=== PATIENT | male | born 1955 | race Caucasian/White ===

== ENCOUNTER 2016-12-12 17:37 | Observation (INO) ==
[2016-12-12 18:10] LABS: Basophils % 0.5 %; Eosinophils # 0.1 K/mcL (0.0-0.6); Hematocrit 46.3 % (37.5-50.1); Hemoglobin 16.1 g/dL (12.9-16.9); Immature Granulocytes % 0.3 % (0-4); Lymphocytes # 1.8 K/mcL (0.6-4.6); Lymphocytes % 22.8 %; Mean Corpuscular HGB Conc 34.8 g/dL (31.6-35.5); Mean Corpuscular Hemoglobin 33.2 pg (28.0-33.3); Mean Corpuscular Volume 95.5 fL (83.0-100.0); Mean Platelet Volume 10.5 fL (9.4-12.4); Monocytes # 0.9 K/mcL (0.0-1.3); Monocytes % 11.7 %; Neutrophils # 4.9 K/mcL (1.6-8.9); Platelet Count 216 K/mcL (140-400); Red Blood Count 4.85 M/mcL (4.19-5.50); Red Cell Distribution Width 13.5 % (11.5-14.5); Segmented Neutrophils % 63.7 %
[2016-12-12 18:22] LABS: BUN/Creatinine Ratio 7 (6-26); Blood Urea Nitrogen 6 mg/dL (8-26); Carbon Dioxide 23 mEq/L (19-29); Chloride 105 mEq/L (98-109); Glucose 110 mg/dL (70-99); INR 1.1; Osmolality,Calculated 284 (280-300); Potassium 3.6 mEq/L (3.5-4.5); Prothrombin Time 11.4 Seconds (9.4-12.1); Sodium 138 mEq/L (136-145); eGFR For African Americans > 60 (> 60); eGFR For Non-African Americans > 60 (> 60)
[2016-12-12 18:24] LABS: Activated Partial Thrombo Time 29.6 Seconds (26.0-36.0)
--- NOTE | 2016-12-12 19:22 | Emergency Department Note ---
Disposition Clinical Impression: Chest pain, Hypertension, Obesity, Smoker, COPD (chronic obstructive pulmonary disease), Hyperlipidemia, Family history of coronary artery disease Disposition: Admitted As Inpatient Referrals: Pino Goldstein DO [Primary Care Provider] - Forms: ED Satisfaction Letter General Adult HPI - General Chief complaint: ED Chest Pain Stated complaint: chest pain Time Seen by Provider: 12/12/16 19:22 Source: patient Limitations: no limitations - History of Present Illness HPI Narrative: 61-year-old male reports emergency department with chest pain has been midsternal somewhat right-sided. The patient was chopping wood today with his male relatively developed chest pain and became so bad he could not take his grandchild to a democrat and he turned around and came to the hospital. The patient has no known coronary disease, he reports he seen a cna gna and a catheter or stress test had not been done. The patient is noted to be a smoker , obese, hypertensive, hyperlipidemic and has a family history of coronary artery disease. He patient denies any direct trauma. There is been no fever cough coughing up blood leg swelling or pain or syncope. No abdominal pain vomiting or diarrhea. The patient has no history of aortic aneurysm, there is no history of previous year DVT. There is no history of fever or rash. The patient does have a history of COPD as well. He does not usually require oxygen. There is been no coldness blueness numbness or weakness of the arms or legs no confusion. No trouble walking talking hearing seeing or speaking. The patient does not usually have chest pain. Pain Scale: 7 - Related Data Home Medications Medication Instructions Recorded Confirmed Lisinopril 20 mg PO DAILY 11/03/15 12/12/16 Aspirin Enteric Coated [Aspirin EC] 81 mg PO DAILY 12/12/16 12/12/16 Tramadol HCl [Ultram] 50 mg PO Q6H PRN 12/12/16 12/12/16 Allergies Allergy/AdvReac Type Severity Reaction Status Date / Time acetaminophen [From Percocet] AdvReac Itching Verified 12/12/16 17:46 bupropion AdvReac See Verified 12/12/16 21:44 Comments Oxycodone [From Percocet] AdvReac Itching Verified 12/12/16 17:46 Zolpidem [From Ambien] AdvReac See Verified 12/12/16 21:44 Comments All systems ED: reviewed and negative except as stated. Past Medical History - Past Medical History Medical history: Reports: COPD, hypertension Surgical history: Reports: cholecystectomy, orthopedic, other Psychiatric history: Reports: no psych history - Social History Smoking Status: Current every day smoker Smokeless Tobacco Status: No Alcohol use: Reports: heavy Drug use: Reports: none Physical Exam - General Limitations: no limitations, other (The patient appears to be somewhat uncomfortable.) General appearance: alert, in no apparent distress - Head Head exam: atraumatic, normocephalic, normal inspection - Eye Eye exam: Present: normal appearance, PERRL, EOMI - ENT ENT exam: normal exam, normal oropharynx, mucous membranes moist - Neck Neck exam: Present: normal inspection, full ROM, trachea midline - Chest Chest inspection: Present: normal inspection, symmetric chest wall rise, tenderness. Absent: rash - Respiratory Respiratory exam: Present: normal lung sounds bilaterally. Absent: respiratory distress - Cardiovascular Cardiovascular exam: Present: regular rate, normal rhythm, normal heart sounds - Abdominal Exam Abdominal exam: Present: soft, Non-Tender, normal bowel sounds. Absent: tenderness, distention, guarding, rebound, rigidity, trauma, pulsatile mass - Extremities Exam Extremities exam: Present: normal inspection, full ROM, normal capillary refill. Absent: tenderness, pedal edema, joint swelling, calf tenderness - Expanded Lower Extremity Exam Lower leg exam: Absent: Homans' sign Neurovascular/Tendon exam: Absent: motor deficit, sensory deficit, tendon deficit, extremity cold to touch, pallor - Back Exam Back exam: Present: normal inspection, full ROM. Absent: tenderness, CVA tenderness (R), CVA tenderness (L), vertebral tenderness - Neurological Exam Neurological exam: Present: alert, oriented X3, CN II-XII intact. Absent: motor sensory deficit - Psychiatric Psychiatric exam: Present: normal affect, normal mood - Skin Skin exam: Present: warm, dry, intact, normal color. Absent: rash, cyanosis, diaphoresis, erythema, pallor, mottled Course Vital Signs Temperature 98.1 F 12/12/16 17:44 Pulse Rate 114 12/12/16 17:44 Respiratory Rate 18 12/12/16 17:44 Blood Pressure 151/90 12/12/16 17:44 O2 Sat by Pulse Oximetry 91 L 12/12/16 17:44 Temperature 98.1 F 12/12/16 17:44 Pulse Rate 81 12/12/16 22:03 Respiratory Rate 16 12/12/16 22:03 Blood Pressure 130/98 12/12/16 22:03 O2 Sat by Pulse Oximetry 95 12/12/16 22:03 Oxygen Delivery Oxygen Delivery Nasal Cannula Medical Decision Making - MDM Narrative Medical decision making narrative: The patient is 61 years old with a history of hypertension, hyperlipidemia, obesity, smoking, COPD, and an abnormal EKG, who presents with exertional chest pain. The patient does have a musculoskeletal sounding component, however his heart score is 5 and he has never had a heart catheterization or stress test. The patient is also hypoxemic and has no medical tachycardia. His PERC + and Wells' -. Based on the patient's presentation of exertional related chest pain with multiple risk factors, I thought would be appropriate to admit the patient for observation. Aspirin was ordered. I discussed the case with the hospitalist who has accepted the patient to their care. The patient is currently stable. - Lab Data Lab results reviewed: Yes I reviewed the patient's lab results. Result diagrams: 12/12/16 18:01 12/12/16 18:01 Lab Results 12/12/16 12/12/16 12/12/16 Range/Units 18:01 18:01 18:01 WBC 7.7 (4.3-11.1) K/mcL RBC 4.85 (4.19-5.50) M/mcL Hgb 16.1 (12.9-16.9) g/dL Hct 46.3 (37.5-50.1) % MCV 95.5 (83.0-100.0) fL MCH 33.2 (28.0-33.3) pg MCHC 34.8 (31.6-35.5) g/dL RDW 13.5 (11.5-14.5) % Plt Count 216 (140-400) K/mcL MPV 10.5 (9.4-12.4) fL Immature Gran % 0.3 (0-4) % Seg Neutrophils % 63.7 % Lymphocytes % 22.8 % Monocytes % 11.7 % Eosinophils % 1.0 % Basophils % 0.5 % Neutrophils # 4.9 (1.6-8.9) K/mcL Lymphocytes # 1.8 (0.6-4.6) K/mcL Monocytes # 0.9 (0.0-1.3) K/mcL Eosinophils # 0.1 (0.0-0.6) K/mcL Basophils # 0.0 (0.0-0.2) K/mcL PT 11.4 (9.4-12.1) Seconds INR 1.1 APTT 29.6 (26.0-36.0) Seconds Sodium 138 (136-145) mEq/L Potassium 3.6 (3.5-4.5) mEq/L Chloride 105 (98-109) mEq/L Carbon Dioxide 23 (19-29) mEq/L BUN 6 L (8-26) mg/dL Creatinine 0.86 (0.72-1.25) mg/dL Est GFR ( Amer) > 60 (> 60) Est GFR (Non-Af Amer) > 60 (> 60) BUN/Creatinine Ratio 7 (6-26) Glucose 110 H (70-99) mg/dL Calculated Osmolality 284 (280-300) Calcium 9.0 (8.6-10.8) mg/dL Total Bilirubin 0.5 (0.2-1.2) mg/dL Direct Bilirubin 0.3 (0.0-0.5) mg/dL Indirect Bilirubin 0.2 (0.0-1.2) mg/dL AST 29 (5-34) Units/L ALT 28 (0-55) Units/L Alkaline Phosphatase 109 (38-126) Units/L Troponin I (0-0.03) ng/mL Serum Total Protein 7.8 (6.0-8.3) g/dL Albumin 3.6 (3.5-5.0) g/dL Globulin 4.2 H (2.4-3.5) g/dL Albumin/Globulin Ratio 0.9 L (1.1-2.2) Lipase 14 (8-78) Units/L 12/12/ Range/Units 18:01 WBC (4.3-11.1) K/mcL RBC (4.19-5.50) M/mcL Hgb (12.9-16.9) g/dL Hct (37.5-50.1) % MCV (83.0-100.0) fL MCH (28.0-33.3) pg MCHC (31.6-35.5) g/dL RDW (11.5-14.5) % Plt Count (140-400) K/mcL MPV (9.4-12.4) fL Immature Gran % (0-4) % Seg Neutrophils % % Lymphocytes % % Monocytes % % Eosinophils % % Basophils % % Neutrophils # (1.6-8.9) K/mcL Lymphocytes # (0.6-4.6) K/mcL Monocytes # (0.0-1.3) K/mcL Eosinophils # (0.0-0.6) K/mcL Basophils # (0.0-0.2) K/mcL PT (9.4-12.1) Seconds INR APTT (26.0-36.0) Seconds Sodium (136-145) mEq/L Potassium (3.5-4.5) mEq/L Chloride (98-109) mEq/L Carbon Dioxide (19-29) mEq/L BUN (8-26) mg/dL Creatinine (0.72-1.25) mg/dL Est GFR ( Amer) (> 60) Est GFR (Non-Af Amer) (> 60) BUN/Creatinine Ratio (6-26) Glucose (70-99) mg/dL Calculated Osmolality (280-300) Calcium (8.6-10.8) mg/dL Total Bilirubin (0.2-1.2) mg/dL Direct Bilirubin (0.0-0.5) mg/dL Indirect Bilirubin (0.0-1.2) mg/dL AST (5-34) Units/L ALT (0-55) Units/L Alkaline Phosphatase (38-126) Units/L Troponin I 0.00 (0-0.03) ng/mL Serum Total Protein (6.0-8.3) g/dL Albumin (3.5-5.0) g/dL Globulin (2.4-3.5) g/dL Albumin/Globulin Ratio (1.1-2.2) Lipase (8-78) Units/L - Radiology Data Radiology results reviewed: Yes I reviewed the patient's radiology results.
[2016-12-12] MEDS ORDERED: Aspirin 325 MG TABLET PO ONE (20:12)
[2016-12-12] MEDS ORDERED: *HR* Morphine 2 MG/ML SYRINGE IVP ONE (20:12)
[2016-12-12] MEDS ORDERED: Ondansetron 4 MG/2 ML VIAL IVP ONE (20:12)
[2016-12-12 20:35] LABS: Alanine Aminotransferase 28 Units/L (0-55); Albumin 3.6 g/dL (3.5-5.0); Albumin/Globulin Ratio 0.9 (1.1-2.2); Alkaline Phosphatase 109 Units/L (38-126); Aspartate Amino Transferase 29 Units/L (5-34); Bilirubin,Direct 0.3 mg/dL (0.0-0.5); Bilirubin,Indirect 0.2 mg/dL (0.0-1.2); Bilirubin,Total 0.5 mg/dL (0.2-1.2); Globulin 4.2 g/dL (2.4-3.5); Lipase 14 Units/L (8-78); Total Protein 7.8 g/dL (6.0-8.3)
[2016-12-12] MEDS ORDERED: GI Cocktail 40 ML EACH PO ONE (22:56)
[2016-12-12] MEDS ORDERED: Naloxone 0.4 MG/ML INJ IVP PRN (23:40)
--- NOTE | 2016-12-12 23:47 | Internal Med History&Physical ---
<So Prince M - Last Filed: 12/13/16 00:38> Date of Encounter: 12/12/16 Time of Encounter: 23:43 Assessment and Plan (1) Chest pain Current visit: Yes Status: Acute Patient reporting mid sternal chest pain radiating to right shoulder, with episode of dizziness and lightheadedness. EKG showed sinus tachycardia, troponin negative at 0.00. Patient sees Dr. Ritchie as outpatient and had stress test last month that showed EF 68% and suspected artifact but inferior wall ischemia cannot be excluded. Echo from September showed LVEF 60-65%, mild LV diastolic dysfunction. Differential includes musculo-skeletal as pain started during wood chopping, acid reflux, but will rule out ACS. Continuous threat monitoring analyst serial troponins Consult to cardiology due to recent stress that could not rule out ischemia, and now with chest pain. Qualifiers: Chest pain type: precordial pain Qualified Code(s): R07.2 - Precordial pain (2) COPD (chronic obstructive pulmonary disease) Current visit: Yes Status: Acute Patient with COPD, on Oxygen at home as needed. On exam, scattered wheezes. duoneb treatments QID albuterol nebulizer Q2 hr PRN titrate oxygen to maintain saturation > 90% Qualifiers: COPD type: chronic bronchitis Chronic bronchitis type: unspecified Qualified Code(s): J42 - Unspecified chronic bronchitis (3) Hypertension Current visit: Yes Status: Acute Continue home dose of lisinopril Qualifiers: Hypertension type: essential hypertension Qualified Code(s): I10 - Essential (primary) hypertension (4) Smoker Current visit: Yes Status: Acute Patient reports he is trying to quit, and only smoked 1 cigarette today. Offered encouragement. nicotine patch. (5) Alcohol abuse Current visit: No Status: Acute Patient reports drinking 2-8 beers nightly. [facility] protocol ordered for alcohol withdrawal. (6) DVT prophylaxis Current visit: Yes Status: Acute encourage ambulation anti-embolic stockings lovenox 40mg SQ daily Internal Medicine - H&P: HPI Chief complaint: chest pain Admitted From: Emergency Dept Plans for Post Hospital Care: Home History of present illness: Mr. Mondragon is a 61 year old male with hypertension, hyperl, and obesity presented to the emergency department today with complaints of chest pain. He reports he was chopping wood earlier today when he developed midsternal chest pain that radiated to his right shoulder and decided to turn around and presented to the emergency department. He also reports palpitations, nausea, and burping. He reports he feels increased shortness of breath, and he has a cough that is productive of white sputum for the past week. He wears oxygen at home as needed, and here has been requiring 2 L nasal cannula to maintain saturations. Evaluation in the emergency department included an EKG which showed sinus tachycardia. Chest x-ray showed bibasilar atelectasis. Troponin was negative at 0.0. He was given aspirin and morphine in the ED, as well as a GI cocktail. On exam, patient is alert, and oriented, appears uncomfortable, and burps throughout. He reports some of his discomfort was relieved by the GI cocktail. He does have tenderness to palpation over epigastric area. Heart is regular rate and rhythm. Lungs have scattered wheezes bilaterally. Past Med Surg Social Fam HX - Past Medical History Medical history: COPD, hypertension Psychiatric history: no psych history - Past Surgical History Surgical History: cholecystectomy, orthopedic, other - Social History Smoking Status: Current every day smoker (47 Pack year history) Smokeless Tobacco Status: No Alcohol use: heavy (2-8 beers nightly) Drug use: marijuana (47 years) - Family History Mother Living Status: Age at : 64 Hx Family Cardiac Disorders: Yes Father Living Status: Age at : 54 Hx Family Cancer: Yes Internal Medicine - H&P: Meds RX: Lisinopril 20 mg PO DAILY 11/03/15 [History] Aspirin Enteric Coated [Aspirin EC] 81 mg PO DAILY 12/12/16 [History] Tramadol HCl [Ultram] 50 mg PO Q6H PRN 12/12/16 [History] Allergies acetaminophen [From Percocet] Adverse Reaction (Verified 12/12/16 17:46) Itching bupropion Adverse Reaction (Verified 12/12/16 21:44) See Comments "made me feel sick" Oxycodone [From Percocet] Adverse Reaction (Verified 12/12/16 17:46) Itching Zolpidem [From Ambien] Adverse Reaction (Verified 12/12/16 21:44) See Comments "made me feel weird" All Systems PM: A 10-system review of systems was performed and is negative for pertinent findings except as documented above in the HPI. - Constitutional Constitutional: no chills, no fever(s), no night sweats - EENT Eyes: no change in vision, no discharge, no pain, no photophobia Ears: no ear discharge, no ear pain, no tinnitus Nose, mouth and throat: no dysphagia, no nasal discharge, no neck pain, no sore throat - Cardiovascular Cardiovascular ROS IM: chest pain, dyspnea, dyspnea on exertion, lightheadedness , palpitations, no diaphoresis, no syncope - Respiratory Respiratory: cough, dyspnea, dyspnea on exertion, wheezing, excessive phlegm production - Gastrointestinal Gastrointestinal: abdominal pain, belching, nausea, no diarrhea, no hematemesis , no hematochezia, no melena, no vomiting - Musculoskeletal Musculoskeletal ROS IM: no numbness, no tingling - Integumentary Integumentary IM: no rash, no unusual bruising - Neurological Neurological ROS: no confusion, no convulsions, no focal weakness, no numbness, no tingling, no tremor(s) - Hematologic/Lymphatic Hematologic/Lymphatic: no easy bruising - Constitutional Vitals: Temp Pulse Resp BP Pulse Ox 98.1 F 81 16 132/94 95 12/12/16 17:44 12/12/16 22:03 12/12/16 22:58 12/12/16 22:58 12/12/16 22:03 General appearance: Present: A&O X 3, pleasant - Head Head exam: Present: atraumatic, normocephalic - Eye Eye exam: Present: PERRL, conjuntiva pink, sclera anicteric Pupils: Present: PERRL - Neck Neck exam general surgery: Present: supple, trachea midline. Absent: lymphadenopathy - Respiratory Respiratory exam: Present: wheezes. Absent: accessory muscle use, rales, rhonchi - Cardiovascular Cardiovascular exam: Present: RRR, +S1, +S2. Absent: diastolic murmur, gallop, rubs, systolic murmur - GI/Abdominal GI/Abdominal exam: Present: normal bowel sounds, soft, tenderness (over epigastric area), no peritoneal signs. Absent: distended - Extremities Exam Extremities exam: Present: warm, radial pulses palpable and symetrical. Absent : calf tenderness, cyanotic, pedal edema - Neurological Exam Neurological exam: Present: CN II-XII intact, oriented X3, no focal deficits. Absent: facial droop, speech deficit - Skin Skin exam: Present: dry, intact Internal Med - H&P Results - Labs CBC & Chem 7: 12/12/16 18:01 12/12/16 18:01 Labs: All Lab Results (24 Hours) 12/12/16 12/12/16 12/12/16 Range/Units 18:01 18:01 18:01 WBC 7.7 (4.3-11.1) K/mcL RBC 4.85 (4.19-5.50) M/mcL Hgb 16.1 (12.9-16.9) g/dL Hct 46.3 (37.5-50.1) % MCV 95.5 (83.0-100.0) fL MCH 33.2 (28.0-33.3) pg MCHC 34.8 (31.6-35.5) g/dL RDW 13.5 (11.5-14.5) % Plt Count 216 (140-400) K/mcL MPV 10.5 (9.4-12.4) fL Immature Gran % 0.3 (0-4) % Seg Neutrophils % 63.7 % Lymphocytes % 22.8 % Monocytes % 11.7 % Eosinophils % 1.0 % Basophils % 0.5 % Neutrophils # 4.9 (1.6-8.9) K/mcL Lymphocytes # 1.8 (0.6-4.6) K/mcL Monocytes # 0.9 (0.0-1.3) K/mcL Eosinophils # 0.1 (0.0-0.6) K/mcL Basophils # 0.0 (0.0-0.2) K/mcL PT 11.4 (9.4-12.1) Seconds INR 1.1 APTT 29.6 (26.0-36.0) Seconds Sodium 138 (136-145) mEq/L Potassium 3.6 (3.5-4.5) mEq/L Chloride 105 (98-109) mEq/L Carbon Dioxide 23 (19-29) mEq/L BUN 6 L (8-26) mg/dL Creatinine 0.86 (0.72-1.25) mg/dL Est GFR ( Amer) > 60 (> 60) Est GFR (Non-Af Amer) > 60 (> 60) BUN/Creatinine Ratio 7 (6-26) Glucose 110 H (70-99) mg/dL Calculated Osmolality 284 (280-300) Calcium 9.0 (8.6-10.8) mg/dL Total Bilirubin 0.5 (0.2-1.2) mg/dL Direct Bilirubin 0.3 (0.0-0.5) mg/dL Indirect Bilirubin 0.2 (0.0-1.2) mg/dL AST 29 (5-34) Units/L ALT 28 (0-55) Units/L Alkaline Phosphatase 109 (38-126) Units/L Troponin I (0-0.03) ng/mL Serum Total Protein 7.8 (6.0-8.3) g/dL Albumin 3.6 (3.5-5.0) g/dL Globulin 4.2 H (2.4-3.5) g/dL Albumin/Globulin Ratio 0.9 L (1.1-2.2) Lipase 14 (8-78) Units/L / Range/Units 18:01 WBC (4.3-11.1) K/mcL RBC (4.19-5.50) M/mcL Hgb (12.9-16.9) g/dL Hct (37.5-50.1) % MCV (83.0-100.0) fL MCH (28.0-33.3) pg MCHC (31.6-35.5) g/dL RDW (11.5-14.5) % Plt Count (140-400) K/mcL MPV (9.4-12.4) fL Immature Gran % (0-4) % Seg Neutrophils % % Lymphocytes % % Monocytes % % Eosinophils % % Basophils % % Neutrophils # (1.6-8.9) K/mcL Lymphocytes # (0.6-4.6) K/mcL Monocytes # (0.0-1.3) K/mcL Eosinophils # (0.0-0.6) K/mcL Basophils # (0.0-0.2) K/mcL PT (9.4-12.1) Seconds INR APTT (26.0-36.0) Seconds Sodium (136-145) mEq/L Potassium (3.5-4.5) mEq/L Chloride (98-109) mEq/L Carbon Dioxide (19-29) mEq/L BUN (8-26) mg/dL Creatinine (0.72-1.25) mg/dL Est GFR ( Amer) (> 60) Est GFR (Non-Af Amer) (> 60) BUN/Creatinine Ratio (6-26) Glucose (70-99) mg/dL Calculated Osmolality (280-300) Calcium (8.6-10.8) mg/dL Total Bilirubin (0.2-1.2) mg/dL Direct Bilirubin (0.0-0.5) mg/dL Indirect Bilirubin (0.0-1.2) mg/dL AST (5-34) Units/L ALT (0-55) Units/L Alkaline Phosphatase (38-126) Units/L Troponin I 0.00 (0-0.03) ng/mL Serum Total Protein (6.0-8.3) g/dL Albumin (3.5-5.0) g/dL Globulin (2.4-3.5) g/dL Albumin/Globulin Ratio (1.1-2.2) Lipase (8-78) Units/L - Diagnostic Studies Chest x-ray Additional comments: Chest X-Ray 12/12/16 17:49 IMPRESSION: Bibasilar atelectasis. No acute findings. D/ / Susan Zhu MD / Susan Zhu MD Interpreting Provider: Susan Zhu MD <Harish Ivey - Last Filed: 12/13/16 06:49> Internal Medicine - H&P: HPI History of present illness: Mr. Mondragon is a 61 year old male All Systems PM: A 10-system review of systems was performed and is negative for pertinent findings except as documented above in the HPI. - Constitutional Vitals: Temp Pulse Resp BP Pulse Ox 97.7 F 71 17 118/77 94 L 12/13/16 03:06 12/13/16 03:06 12/13/16 04:40 12/13/16 03:06 12/13/16 04:40 Internal Med - H&P Results - Labs CBC & Chem 7: 12/13/16 00:39 12/13/16 00:39 Labs: Short CBC 12/13/16 Range/Units 00:39 WBC 7.4 (4.3-11.1) K/mcL Hgb 15.1 (12.9-16.9) g/dL Hct 45.3 (37.5-50.1) % Plt Count 209 (140-400) K/mcL Neutrophils # 4.5 (1.6-8.9) K/mcL BMP 12/13/16 00:39 Sodium 137 Potassium 3.4 L Chloride 104 Carbon Dioxide 25 BUN 6 L Creatinine 0.77 Glucose 107 H Calcium 8.7 Cardiac Enzymes 12/13/16 Range/Units 00:39 Troponin I 0.00 (0-0.03) ng/mL - Attending Attestation I examined this patient and my medical decision-making was reviewed with the BRYOLOGIST/PA/Advanced Practice Nurse/Resident Physician. I agree with the documented findings, disposition and treatment plan as described except to the extent set forth below. Chest pain. Follow trend of trops.
[2016-12-12] MEDS ORDERED: Albuterol 2.5 MG/3 ML NEBULIZER IH PRN (23:55)
[2016-12-12] MEDS ORDERED: *HR* Promethazine 25 MG/ML VIAL IVP PRN (23:56)
[2016-12-12] MEDS ORDERED: *HR* LORazepam 2 MG/ML VIAL IVP PRN ×3 (23:56)
[2016-12-13 01:08] LABS: Basophils % 0.5 %; Eosinophils % 0.5 %; Hematocrit 45.3 % (37.5-50.1); Hemoglobin 15.1 g/dL (12.9-16.9); Immature Granulocytes % 0.3 % (0-4); Lymphocytes # 2.1 K/mcL (0.6-4.6); Lymphocytes % 28.4 %; Mean Corpuscular HGB Conc 33.3 g/dL (31.6-35.5); Mean Corpuscular Hemoglobin 32.5 pg (28.0-33.3); Mean Corpuscular Volume 97.4 fL (83.0-100.0); Mean Platelet Volume 10.7 fL (9.4-12.4); Monocytes # 0.7 K/mcL (0.0-1.3); Neutrophils # 4.5 K/mcL (1.6-8.9); Platelet Count 209 K/mcL (140-400); Red Blood Count 4.65 M/mcL (4.19-5.50); Red Cell Distribution Width 13.5 % (11.5-14.5); Segmented Neutrophils % 60.3 %
[2016-12-13 01:24] LABS: BUN/Creatinine Ratio 8 (6-26); Blood Urea Nitrogen 6 mg/dL (8-26); Calcium 8.7 mg/dL (8.6-10.8); Carbon Dioxide 25 mEq/L (19-29); Chloride 104 mEq/L (98-109); Glucose 107 mg/dL (70-99); Osmolality,Calculated 282 (280-300); Potassium 3.4 mEq/L (3.5-4.5); Sodium 137 mEq/L (136-145); eGFR For African Americans > 60 (> 60); eGFR For Non-African Americans > 60 (> 60)
[2016-12-13] MEDS: traMADol 50 MG TABLET PO PRN ×2 (01:59→08:37)
[2016-12-13] MEDS: Nicotine 14 MG PATCH.TD24 TD SCH ×2 (02:00→08:28)
[2016-12-13 03:28] LABS: Amphetamine Screen,Urine Negative ng/mL (Cutoff=1000); Barbiturate Screen,Urine Negative ng/mL (Cutoff=200); Benzodiazepines Screen,Urine Negative ng/mL (Cutoff=200); Cannabinoid Screen,Urine Positive ng/mL (Cutoff = 50); Cocaine Screen,Urine Negative ng/mL (Cutoff= 300); Opiate Screen,Urine Positive ng/mL (Cutoff=300); Phencyclidine Screen,Urine Negative ng/mL (Cutoff=25)
[2016-12-13] MEDS: Ipratropium/Albuterol Neb 3 ML IH SCH ×3 (03:34→10:24)
[2016-12-13] MEDS ORDERED: Folic Acid 1 MG TABLET PO SCH (09:00)
[2016-12-13] MEDS ORDERED: Vitamin B Complex/Vit C/Vit E 1 EACH TABLET PO SCH (09:00)
[2016-12-13] MEDS ORDERED: Lisinopril 20 MG TABLET PO SCH (09:00)
[2016-12-13] MEDS ORDERED: Aspirin Enteric Coated 81 MG Tablet PO SCH (09:00)
--- NOTE | 2016-12-13 09:08 | Cardiology Consult Note ---
Date of Encounter: 12/14/15 Time of Encounter: 08:40 Assessment and Plan (1) Chest pain Current Visit: Yes Status: Acute Patient presents with muscle skeletal chest pain after chopping wood. Cardiology consult and due to recent equivocal stress test. Troponins are negative and EKG shows no significant ST changes. TTE one month ago showed normal LV function. He does describe increasing dyspnea on exertion and diaphoresis. I discussed continuing medical management versus left heart catheterization. He prefers to continue with medical management at this time. Close outpatient follow-up. Qualifiers: Chest pain type: precordial pain Qualified Code(s): R07.2 - Precordial pain Discussion w patient/family: The assessment and plan as outlined above was discussed with the patient and/or family members who expressed understanding and agreement. All questions were answered. Thank you for involving us in the care of your patient. Please call with any questions. The patient will be seen and examined by Dr. Zamora. Changes to the plan of care will be made as needed. History of Present Illness Consult date: 12/13/16 Requesting physician: Harish Ivey Consult reason: Chest pain Chief complaint: Chest pain, and tingling History of present illness: Mr. Mondragon is a 61 year old male with a history of anxiety, HLD, essential HTN, and tobacco use who presents with right shoulder pain radiating to his chest and axilla. His discomfort started while chopping firewood. His pain increases with movement of his arm and palpation. He has a history of right shoulder replacement. He also complains of a tingling sensation that occurred twice while driving to his son's house. He associated with diaphoresis. He also complains of increasing shortness of breath with activity over the last few months that lead to his stress test. He recently underwent a stress test that was suboptimal in quality due to some diaphragmatic uptake obscuring visualization of the inferior segments. The presence of inferior ischemia could not be excluded, gated EF 68%. Recent echocardiogram demonstrates normal LV function and no significant valvular disease. He was seen in the cardiology office and decided on medical management and risk factor modification. Reports he quit smoking. On my exam he is chest pain-free. Past Med Surg Social Fam HX - Past Medical History Attestation: Yes The following information was validated with the patient. Medical history: COPD, hyperlipidemia, hypertension Psychiatric history: no psych history - Past Surgical History Surgical History: cholecystectomy, orthopedic, other - Social History Smoking Status: Current every day smoker (47 Pack year history) Packs per day: Attempting to quit currently Smokeless Tobacco Status: No Alcohol use: heavy (2-8 beers nightly) Drug use: marijuana (47 years) - Family History Mother Living Status: Age at : 64 Cause of : Heart Hx Family Cardiac Disorders: Yes Hx Family Respiratory Disorders: No Hx Family Cancer: No Hx Family GI Disorders: Yes (Ulcers) Hx Family Genitourinary Disorders: No Hx Family Endocrine Disorder: No Hx Family Musculoskeletal Disorders: No Hx Family Neuromuscular Disorders: No Hx Family Neurologic Disorders: No Hx Family HEENT Disorders: No Hx Family Autoimmune Disorders: No Hx Family Reproductive Disorders: No Hx Family Psychosocial Disorders: No Hx Family Medical Disorders: No Father Living Status: Age at : 54 Cause of : Cancer Hx Family Cardiac Disorders: No Hx Family Respiratory Disorders: Yes (COPD, emphysema) Hx Family Cancer: Yes Hx Family GI Disorders: No Hx Family Genitourinary Disorders: No Hx Family Endocrine Disorder: No Hx Family Musculoskeletal Disorders: No Hx Family Neuromuscular Disorders: No Hx Family Neurologic Disorders: No Hx Family HEENT Disorders: No Hx Family Autoimmune Disorders: No Hx Family Reproductive Disorders: No Hx Family Psychosocial Disorders: No Hx Family Medical Disorders: No Medications and Allergies Lisinopril 20 mg PO DAILY 11/03/15 [History] Aspirin Enteric Coated [Aspirin EC] 81 mg PO DAILY 12/12/16 [History] Tramadol HCl [Ultram] 50 mg PO Q6H PRN 12/12/16 [History] Allergies acetaminophen [From Percocet] Adverse Reaction (Verified 12/12/16 17:46) Itching bupropion Adverse Reaction (Verified 12/12/16 21:44) See Comments "made me feel sick" Oxycodone [From Percocet] Adverse Reaction (Verified 12/12/16 17:46) Itching Zolpidem [From Ambien] Adverse Reaction (Verified 12/12/16 21:44) See Comments "made me feel weird" All Systems Review: A 10-system review of systems was performed and is negative for pertinent findings except as documented above in the HPI. Physical Examination Vital Signs, Last 4 Hours Temp Pulse Resp BP Pulse Ox 12/13/16 07:39 98.1 F 80 15 125/86 96 General: Conversant, No Apparent Distress HEENT: Atraumatic, Normocephaly, Mucus Membranes Moist Neck: No JVD, Normal carotid pulses Cardiac: Reg Rate and Rhythm, Normal S1 and S2, No Murmur Lungs: Normal Breath Sounds, No Wheeze, Rales, Rhonchi Neuro: Alert and responsive, No focal deficits noted Abdomen: Soft, Non-Tender Skin: No rashes noted on visualized skin Musculoskeletal: Other (Reproducible pain in the right axilla and right shoulder blade. Increased pain with range of motion of the right arm.) Extremities: No Clubbing, No Cyanosis, No Edema, Normal Pulses Results 12/13/16 00:39 12/13/16 00:39 Lab Results 12/13/16 12/13/16 12/13/16 00:39 00:39 00:39 WBC 7.4 Hgb 15.1 Hct 45.3 Plt Count 209 Sodium 137 Potassium 3.4 L Chloride 104 Carbon Dioxide 25 BUN 6 L Creatinine 0.77 Glucose 107 H Calcium 8.7 Troponin I 0.00 12/13/16 06:49 WBC Hgb Hct Plt Count Sodium Potassium Chloride Carbon Dioxide BUN Creatinine Glucose Calcium Troponin I 0.01 - Imaging and Cardiology Stress Test: report reviewed Echo: report reviewed - EKG Interpretation EKG results cardiology: personally reviewed (Sinus tachycardia with a heart rate of [address]-T changes.), other (Average heart rate was 74 bpm normal sinus rhythm over the last 24 hours. No significant bradycardia, pauses, or ventricular tachycardia seen.) Consult Discharge Plan - Plan Referrals: Pino Goldstein DO [Primary Care Provider] -
[2016-12-13 11:01] VITALS: BP 115/70
--- NOTE | 2016-12-13 12:50 | Discharge Summary ---
Date of Encounter: 12/13/16 Time of Encounter: 11:30 - Discharge Diagnosis (1) Chest pain Priority: Primary Status: Acute Comments: Patient with atypical chest pain reproducible with palpation. Seen and evaluated by cardiology who surmised this was musculoskeletal injury as it occurred while he was chopping wood. Follow-up outpatient. Qualifiers: Chest pain type: precordial pain Qualified Code(s): R07.2 - Precordial pain (2) Chronic respiratory failure Priority: Secondary Status: Chronic Comments: Is on 2 L per nasal cannula as needed at home, room air during this admission. Denies shortness of breath above his norm. Qualifiers: Respiratory failure complication: unspecified whether with hypoxia or hypercapnia Qualified Code(s): J96.10 - Chronic respiratory failure, unspecified whether with hypoxia or hypercapnia (3) Marijuana abuse Priority: Secondary Status: Chronic (4) Alcohol abuse Priority: Secondary Status: Chronic Comments: Signs of withdrawal during this admission. Patient declined counseling or resources. (5) Hypertension Priority: Secondary Status: Chronic Comments: Controlled with his home medication of 20 mg lisinopril daily Qualifiers: Hypertension type: essential hypertension Qualified Code(s): I10 - Essential (primary) hypertension (6) Smoker Priority: Secondary Status: Chronic Comments: Patient is trying to quit on his own and states he only smoked 1 cigarette on the day of presentation (7) COPD (chronic obstructive pulmonary disease) Priority: Secondary Status: Chronic Comments: No acute exacerbation Qualifiers: COPD type: chronic bronchitis Chronic bronchitis type: unspecified Qualified Code(s): J42 - Unspecified chronic bronchitis (8) DVT prophylaxis Priority: Primary Status: Acute Comments: Observation patient. Up ad dwight. - Discharge Medications Home Medications: Lisinopril 20 mg PO DAILY 11/03/15 [History] Aspirin Enteric Coated [Aspirin EC] 81 mg PO DAILY 12/12/16 [History] Tramadol HCl [Ultram] 50 mg PO Q6H PRN 12/12/16 [History] Allergies/Adverse Reactions: Allergies acetaminophen [From Percocet] Adverse Reaction (Verified 12/12/16 17:46) Itching bupropion Adverse Reaction (Verified 12/12/16 21:44) See Comments "made me feel sick" Oxycodone [From Percocet] Adverse Reaction (Verified 12/12/16 17:46) Itching Zolpidem [From Ambien] Adverse Reaction (Verified 12/12/16 21:44) See Comments "made me feel weird" Date of admission: 12/12/16 22:34 Primary care physician: Pino Goldstein DO Consults: 12/12/16 23:56 Consult to [facility] [CONS] Routine Reason for SW Consult: drinks 2-8 beers nightly 12/13/16 00:24 Consult to Cardiology [CONS] Routine Comment: Consulting Provider: Cardiology Treva Reason for Consult: 61M with Chest pain, recent stress 11/04/16 could not rule out inferior wall ischemia. Patient of Dr. Ritchie Call Completed: No Discharging clinician: Erin Kasper Anticipated date of discharge: 12/13/16 - Patient Status Disposition: Home, Self-Care Condition: Fair Functional capacity at discharge: independent ambulation Overall status at discharge: patient is back to baseline - Discharge Instructions Follow Up With: Pino Goldstein DO [Primary Care Provider] - Sirdhar Allen DO [Partnered Physician] - Additional Instructions: Follow-up with primary care provider within one to 2 weeks. Follow-up with cardiology in 2-3 weeks - Diet and Activity Activity: increase activity as tolerated Diet: low fat, low cholesterol, low salt diet Hospital course: Mr. Mondragon is a 61 year old male with past medical history of COPD on 2 L nasal cannula as needed at home, hypertension, hyperlipidemia, tobacco abuse, heavy alcohol abuse, and marijuana abuse. Patient stating he was chopping wood on the day of presentation when he developed mid sternally located chest pain that radiated to his right shoulder prompting his presentation to the emergency department. Patient also endorsed palpitations, nausea, and burping. Patient also endorsed increased shortness of breath and a cough with productive white sputum over the past week. He states he was requiring his oxygen more frequently. Workup in the emergency department unremarkable. Chest x-ray with bilateral atelectasis to the bases. Troponin negative. Patient was given aspirin, morphine, and a GI cocktail in the emergency department and his pain was relieved. He did have epigastric tenderness as well. He was admitted to the hospitalist service for further evaluation and management. His abdominal labs including LFTs and bilirubin and lipase were all normal. Tox screen positive for opiates and marijuana. Patient tolerated room air during this admission and denied shortness of breath above his normal on day of discharge. He was seen and evaluated by cardiology who surmised this chest pain is more consistent with musculoskeletal etiology and cleared him for outpatient follow- up. He was discharged home in stable condition with close outpatient follow-up recommended. ITS Impressions Chest X-Ray 12/12/16 17:49 IMPRESSION: Bibasilar atelectasis. No acute findings. D/ / Susan Zhu MD / Susan Zhu MD Interpreting Provider: Susan Zuh MD - Time Spent with Patient Total time spent providing and/or coordinating discharge services: - Constitutional Vitals: Temp Pulse Resp BP Pulse Ox 98.3 F 57 16 115/70 98 12/13/16 11:00 12/13/16 11:00 12/13/16 11:00 12/13/16 11:00 12/13/16 11:00 General appearance: Present: A&O X 3, pleasant, no acute distress, answers questions appropriately - Head Head exam: Present: atraumatic, normocephalic - Eye Eye exam: Present: PERRL, conjuntiva pink, sclera anicteric Pupils: Present: PERRL - Neck Neck exam general surgery: Present: supple, trachea midline. Absent: lymphadenopathy - Respiratory Respiratory exam: Present: decreased breath sounds. Absent: accessory muscle use, rales, respiratory distress, rhonchi, wheezes - Cardiovascular Cardiovascular exam: Present: RRR, +S1, +S2. Absent: diastolic murmur, gallop, rubs, systolic murmur - GI/Abdominal GI/Abdominal exam: Present: normal bowel sounds, soft, no peritoneal signs. Absent: distended, tenderness - Extremities Exam Extremities exam: Present: warm, radial pulses palpable and symetrical. Absent : calf tenderness, cyanotic, pedal edema - Neurological Exam Neurological exam: Present: alert, CN II-XII intact, normal gait, oriented X3, no focal deficits, strengths equal and symetr throughout. Absent: pronater drift, facial droop, speech deficit - Skin Skin exam: Present: dry, intact, normal color, warm
--- NOTE | 2016-12-14 21:14 | Electrocardiograph Report ---
[place] [id number] Test Date: 2016-12-12 Pat Name: Yuan Mondragon Department: 102 Room: 3B Gender: M Recycle Worker: : 1955 Requested By: Azra Doll Order Number: [id number] Reading MD: Zia Zamora MD Measurements Intervals [place] Rate: 118 P: 35 AL: 161 QRS: 35 QRSD: 90 T: 30 QT: 299 QTc: 369 Interpretive Statements SINUS TACHYCARDIA Electronically Signed On 12-14-2016 21:12:53 EDT by Zia Zamora MD
== END 2016-12-13 13:47 | disposition home or self-care (01) ==
LOC: EMEROO 17:37 → 3BNU 17:37
PROVIDERS: ADMIT Nurse Practitioner Family; ATTEND Nurse Practitioner Family